=== PATIENT | female | born 1980 | race Caucasian/White ===

== ENCOUNTER 2016-07-30 18:12 | Emergency (ER) | payer MEDICAID, OTHER ==
[~2016-07-30] VITALS: Ht 167.6 cm; Wt 90.0 kg
[~2016-07-30 18:12] MED LIST: CRANCAP2 PO; LACTCAP8 PO; MACR100C2 PO; PHEN0.4T PO
[2016-07-30 18:29] VITALS: BP 120/69; PULSE 59; RESP 16; TEMP 98.9; O2SAT 97
[2016-07-30 18:58] LABS: BLOOD, URINE TRACE (NEG); GLUCOSE,URINE NEG (NEG); KETONE, URINE NEG (NEG); NITRITE,URINE NEG (NEG)
[2016-07-30 19:07] LABS: URINE COLOR YELLOW (YELLW/STRAW)
[2016-07-30 19:08] LABS: MUCUS URINE FEW /lpf (OCC)
[2016-07-30 19:09] LABS: COMMENT (UR) CULT NOT INDICATED; CULTURE IF INDICATED CULT NOT INDICATED; RBC, URINE 0-3 /hpf (0-3); SQUAMOUS EPITHELIAL CELL URINE 0-5 /hpf (0-5); WBC, URINE 0-2 /hpf (0-5)
[2016-07-30 22:51] VITALS: RESP 18; O2SAT 97
--- NOTE | 2016-07-30 22:53 | PD ---
HPI Chief Complaint: Flank/Kidney Pain Time Seen by Provider: 22:42 Travel History International Travel<30 days: No Contact w/Intl Traveler<30days: No Traveled to known affect area: No History of Present Illness HPI 35yo F with PSH of hysterectomy secondary to uterine rupture presents to the ED with c/o left flank pain. Pt has been having pain there for 3 weeks but intermittent until the last 3 days. Sometimes it radiates to the front but currently has no abdominal pain. +Nausea. Denies any fever, chest pain, sob, abdominal pain, heavy lifting, trauma, focal weakness or numbness. Pt took ibuprofen at 3pm with little relief. Pt has frequent UTIs but no history of nephrolithiasis. PFSH Past Medical History Diminished Hearing: No Gastrointestinal Disorders: Yes (colitis) Genitourinary: Yes (FREQUENT BLADDER INFECTIONS) Immunizations Current: Yes Tetanus Vaccination: < 5 Years Influenza Vaccination: No ?: Not Menopausal: Yes Past Surgical History Hysterectomy: Yes (still has ovaries) Tonsillectomy: Yes Social History Alcohol Use: No Tobacco Use: No (FORMER) Substance Use: No (IN [place] DO NOT GIVE NARCOTICS) Allergies-Medications (Allergen,Severity, Reaction): Coded Allergies: No Known Allergies (Unverified , 07/30/16) Reported Meds & Prescriptions Reported Meds & Active Scripts Active Ibuprofen 600 Mg Tab 600 Mg PO Q8HR PRN Review of Systems Except as stated in HPI: all other systems reviewed are Neg Physical Exam Narrative GENERAL: 35yo F not in distress. SKIN: Focused skin assessment warm/dry. HEAD: Atraumatic. Normocephalic. EYES: Pupils equal and round. No scleral icterus. No injection or drainage. ENT: No nasal bleeding or discharge. Mucous membranes pink and moist. NECK: Trachea midline. No JVD. CARDIOVASCULAR: Regular rate and rhythm. No murmur appreciated. RESPIRATORY: No accessory muscle use. Clear to auscultation. Breath sounds equal bilaterally. GASTROINTESTINAL: Abdomen soft, non-tender, nondistended. No rebound tenderness or guarding. BACK: +CVA left. No midline ttp thoracic or lumbar. MUSCULOSKELETAL: No obvious deformities. No clubbing. No cyanosis. No edema. NEUROLOGICAL: Awake and alert. No obvious cranial nerve deficits. Motor grossly within normal limits. Normal speech. PSYCHIATRIC: Appropriate mood and affect; insight and judgment normal. Data Data Last Documented VS Vital Signs Date Time Temp Pulse Resp B/P Pulse Ox O2 Delivery O2 Flow Rate FiO2 07/30/16 23:18 56 18 105/65 99 Room Air 07/30/16 18:29 98.9 Orders Urinalysis - C+S If Indicated (07/30/16 18:33) Basic Metabolic Panel (Bmp) (07/30/16 22:48) Complete Blood Count With Diff (07/30/16 22:48) Iv Access Insert/Monitor (07/30/16 22:48) Ecg Monitoring (07/30/16 22:48) Oximetry (07/30/16 22:48) Sodium Chloride 0.9% Flush (Ns Flush) (07/30/16 23:00) Ketorolac Inj (Toradol Inj) (07/30/16 23:00) Ondansetron Inj (Zofran Inj) (07/30/16 23:00) Sodium Chlorid 0.9% 500 Ml Inj (Ns 500 M (07/30/16 23:00) Ct Abd/Pel W/O Iv Contrast (07/30/16 ) Ondansetron Odt (Zofran Odt) (07/31/16 00:00) Oxycodone-Acetamin 5-325 Mg (Percocet (07/31/16 00:00) Labs Laboratory Tests Test 07/30/16 07/30/16 18:33 23:15 Urine Color YELLOW Urine Turbidity CLEAR Urine pH 6.0 Urine Specific [place] 1.024 Urine Protein NEG mg/dL Urine Glucose (UA) NEG mg/dL Urine Ketones NEG mg/dL Urine Occult Blood TRACE Urine Nitrite NEG Urine Bilirubin NEG Urine Leukocyte Esterase NEG Urine RBC 0-3 /hpf Urine WBC 0-2 /hpf Urine Squamous Epithelial 0-5 /hpf Cells Urine Mucus FEW /lpf Microscopic Urinalysis Comment CULT NOT INDICATED White Blood Count 5.9 TH/MM3 Red Blood Count 4.60 MIL/MM3 Hemoglobin 13.7 GM/DL Hematocrit 40.9 % Mean Corpuscular Volume 88.9 FL Mean Corpuscular Hemoglobin 29.7 PG Mean Corpuscular Hemoglobin 33.4 % Concent Red Cell Distribution Width 12.7 % Platelet Count 237 TH/MM3 Mean Platelet Volume 8.7 FL Neutrophils (%) (Auto) 39.9 % Lymphocytes (%) (Auto) 49.6 % Monocytes (%) (Auto) 8.0 % Eosinophils (%) (Auto) 1.2 % Basophils (%) (Auto) 1.3 % Neutrophils # (Auto) 2.3 TH/MM3 Lymphocytes # (Auto) 2.9 TH/MM3 Monocytes # (Auto) 0.5 TH/MM3 Eosinophils # (Auto) 0.1 TH/MM3 Basophils # (Auto) 0.1 TH/MM3 CBC Comment DIFF FINAL Differential Comment Sodium Level 141 MEQ/L Potassium Level 3.8 MEQ/L Chloride Level 105 MEQ/L Carbon Dioxide Level 27.1 MEQ/L Anion Gap 9 MEQ/L Blood Urea Nitrogen 13 MG/DL Creatinine 0.76 MG/DL Estimat Glomerular Filtration 87 ML/MIN Rate Random Glucose 90 MG/DL Calcium Level 9.5 MG/DL MDM Medical Decision Making Medical Screen Exam Complete: Yes Emergency Medical Condition: Yes Differential Diagnosis Pyelonephritis vs. nephrolithiasis vs. musculoskeletal pain Narrative Course 35yo F with left flank pain for 3 days. Labs reviewed, no leukocytosis. Creatinine normal. UA showed trace blood. No leukocyte or nitrite. VS stable. CTa/p showed no acute findings. Mild constipation. No renal calculi or obstructive uropathy. Pt given percocet and zofran. Pt feels better. Return precautions given. Diagnosis Primary Impression: Left flank pain Patient Instructions: General Instructions Departure Forms: Tests/Procedures Additional Instructions: Please follow up with your PMD in 3-7 days. Return to the ED if symptoms worsen. Med/Other Pt SpecificInfo: Prescription(s) given Scripts Ibuprofen 600 Mg Hph120 Mg PO Q8HR PRN (PAIN) #20 TAB Ref 0 Prov:Brooke Thurston DO 07/31/16 Disposition: 01 DISCHARGE HOME Condition: Stable Brooke Thurston DO Jul 30, 2016 22:53
[2016-07-30] MEDS: SODIUM CHLORID 0.9% 500 ML INJ 500 ML IV ONE ×2 (23:00→23:37)
[2016-07-30] MEDS ORDERED: SODIUM CHLORIDE 0.9% FLUSH 10 ML FLUSH IV FLUSH PRN (23:00)
[2016-07-30] MEDS ORDERED: ONDANSETRON HCL 4 MG/2 ML VIAL IV PUSH ONE (23:00)
[2016-07-30] MEDS ORDERED: KETOROLAC TROMETHAMINE 30 MG/ML (IVP) VIAL IV PUSH ONE (23:00)
[2016-07-30 23:18] VITALS: BP 105/65; PULSE 56; RESP 18; O2SAT 99
[2016-07-30 23:28] LABS: AUTOMATED NEUTROPHIL # 2.3 TH/MM3 (1.8-7.7); BASOPHIL # 0.1 TH/MM3 (0-0.2); BASOPHIL % 1.3 % (0.0-2.0); EOSINOPHIL # 0.1 TH/MM3 (0-0.4); EOSINOPHIL % 1.2 % (0.0-4.0); HEMATOCRIT 40.9 % (35.0-46.0); HEMO FLAGS DIFF FINAL; LYMPH % 49.6 % (9.0-44.0); LYMPHOCYTE # 2.9 TH/MM3 (1.0-4.8); MEAN CELL VOLUME 88.9 FL (80.0-100.0); MEAN CORPUSCULAR HEMOGLOBIN 29.7 PG (27.0-34.0); MEAN CORPUSCULAR HGB CONC 33.4 % (32.0-36.0); NEUT % 39.9 % (16.0-70.0); PLATELET COUNT 237 TH/MM3 (150-450); RED CELL DISTRIBUTION WIDTH 12.7 % (11.6-17.2); WHITE BLOOD COUNT 5.9 TH/MM3 (4.0-11.0)
[2016-07-30 23:42] LABS: POTASSIUM 3.8 MEQ/L (3.5-5.1)
[2016-07-30 23:45] LABS: BICARBONATE 27.1 MEQ/L (21.0-32.0)
[2016-07-31] MEDS ORDERED: oxyCODONE/ACETAMINOPHEN 5 MG/325 MG TAB PO ONE
[2016-07-31] MEDS ORDERED: IBUP-232 PO
[2016-07-31] MEDS ORDERED: ONDANSETRON ODT 4 MG TAB PO ONE
--- NOTE | 2016-07-31 | RADHPO ---
EXAM DATE/TIME: 07/30/2016 23:21 [facility] COMPARISON: No previous studies available for comparison. INDICATIONS : Left flank pain. ORAL CONTRAST: No oral contrast ingested. RADIATION DOSE: 19.99 CTDIvol (mGy) MEDICAL HISTORY : Colitis. SURGICAL HISTORY : Hysterectomy. ENCOUNTER: Initial ACUITY: 3 weeks PAIN SCALE: 7/10 LOCATION: Left flank TECHNIQUE: Volumetric scanning of the abdomen and pelvis was performed. Using automated exposure control and ad justment of the mA and/or kV according to patient size, radiation dose was kept as low as reasonably achievable to obtain optimal diagnostic quality images. FINDINGS: LOWER LUNGS: The visualized lower lungs are clear. LIVER: Homogeneous density without lesion. There is no dilation of the biliary tree. No calcified gallston es. SPLEEN: Normal size without lesion. PANCREAS: Within normal limits. KIDNEYS: Normal in size and shape. There is no mass, stone, or hydronephrosis. ADRENAL GLANDS: Within normal limits. VASCULAR: There is no aortic aneurysm. BOWEL/MESENTERY: The stomach, small bowel, and colon demonstrate no acute abnormality. There is no free intraperitone al air or fluid. ABDOMINAL WALL: Within normal limits. RETROPERITONEUM: There is no lymphadenopathy. BLADDER: No wall thickening or mass. REPRODUCTIVE: Within normal limits. INGUINAL: There is no lymphadenopathy or hernia. MUSCULOSKELETAL: Within normal limits for patient age. CONCLUSION: 1. No acute findings. Mild constipation. Specifically no renal calculi or obstructive uropathy. Noel Quevedo MD on July 30, 2016 at 23:54 Board Certified Radiologist. This report was verified electronically.
[2016-07-31 00:31] VITALS: BP 112/81; PULSE 64; RESP 18; O2SAT 99
== END 2016-07-31 00:50 | disposition home or self-care (01) ==
LOC: PHED 18:12
DX: R10.9 Unspecified abdominal pain (principal)
CPT/HCPCS: 74176; 80048; 81001; 85025; 96374; J1885; J2405; J7040